=== PATIENT | female | born 1940 | race Caucasian/White ===

== ENCOUNTER 2016-03-18 13:33 | Day surgery (SDC) | payer OTHER ==
[~2016-03-18] VITALS: Ht 162.6 cm; Wt 132.9 kg
[~2016-03-18 13:33] MED LIST: ALLOPURINOL100 MG PO; ATENOLOL50 MG PO; ATIVAN0.5 MG PO; BACTRIM,SEPT1 TABLET PO; CALCIUM 500 MG1 EACH PO; CIPRO500 MG PO; EFFEXOR XR75 MG PO; FEMARA2.5 MG PO; FLEXERIL5 MG PO; GLUCOPHAGE1000 MG PO; GLUCOPHAGE500 MG PO; LOW DOSE ASPIRI81 M1 PO; MOBIC7.5 MG PO; MSM-GLUCOSAMIN1 EACH PO; OXYBUTYNIN CHLO10 MG PO; PERCOCET 5/31 TABLET PO; PRINIVIL10 MG PO; SIMVASTATIN20 MG PO; VITAMIN D-3 401 EACH PO; VOLTAREN 1% GE100 GM TP; WELLBUTRIN100 MG PO; ZYLOPRIM100 MG PO
[2016-03-18 14:06] VITALS: BP 153/74
[2016-03-18 14:17] LABS: ANION GAP 9 MEQ/L (2-14); CHLORIDE 103 MEQ/L (99-109); POTASSIUM 4.9 MEQ/L (3.7-5.4); SAMPLE HEMOLYSIS CHECK 0; SAMPLE ICTERIC CHECK 0; SAMPLE LIPEMIA CHECK 0; SODIUM 141 MEQ/L (136-147)
[2016-03-18 14:22] LABS: GFR ESTIMATE (CALCULATED) > 59 mL/min/; GLUCOSE 142 mg/dL (70-99); UREA NITROGEN (BUN) 18 mg/dL (9-23)
[2016-03-18 16:55] VITALS: BP 140/79
== END 2016-03-18 17:25 | disposition home or self-care (01) ==
LOC: SDC 13:33
PROVIDERS: Surgery
PROC: 02HV33Z Insertion of Infusion Device into Superior Vena Cava, Percutaneous Approach (ICD-10-PCS; principal; 2016-03-18)
DX: C48.2 Malignant neoplasm of peritoneum, unspecified (principal); I10 Essential (primary) hypertension; E11.9 Type 2 diabetes mellitus without complications; E78.5 Hyperlipidemia, unspecified; F41.1 Generalized anxiety disorder
CPT/HCPCS: 71010; 80048; C1751; J0690; J2250; J2405; J3010